=== PATIENT | male | born 1955 | race American Indian/Alaskan Native ===

== ENCOUNTER 2019-10-01 05:48 | Day surgery (SDC) | payer OTHER ==
[~2019-10-01 05:48] MED LIST: LACTATED RINGERS 1,000 ML IV SCH; ceFAZolin/Water 2 GM/20 ML 2 GM/20 ML SYRINGE IV NR
[2019-10-01] MEDS ORDERED: BACTERIOSTATIC SODIUM CHLORIDE 0.9% 30 ML VIAL INFILTRATI ONE (06:25)
[2019-10-01] MEDS ORDERED: LIDOCAINE MPF (2%) 20 MG/1 ML VIAL 5 ML ONE (07:29)
[2019-10-01] MEDS ORDERED: MIDAZOLAM 2 MG/2 ML INJ ONE (07:29)
[2019-10-01] MEDS ORDERED: propofoL 200 MG/20 ML VIAL IV ONE (07:30)
[2019-10-01] MEDS ORDERED: fentaNYL 100 MCG/2 ML INJ ONE (07:30)
--- NOTE | 2019-10-01 07:41 | Anesthesia Day of Surgery ---
Anesthesia Day of Surgery - Day of Surgery Patient Examined: Yes Patient H&P Reviewed: Yes Patient is NPO: Yes Cardiac Clearance: Yes
--- NOTE | 2019-10-01 07:41 | Anesthesia Consultation ---
Anesthesia Consult and Med Hx Date of service: 10/01/19 - Airway Anesthetic Teeth Evaluation: Poor Intubation Access Assessment: Possibly Difficult (patient not cooperative with airway exam. 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
[2019-10-01] MEDS ORDERED: ONDANSETRON 4 MG/2 ML INJ ONE (08:00)
[2019-10-01] MEDS ORDERED: WATER FOR IRRIG STERILE 2000 ML IR ONE (08:46)
--- NOTE | 2019-10-01 08:57 | Short Stay Summary ---
Short Stay Documentation Date of service: 10/01/19 - History H&P: obtained from office - Allergies and Medications Current Medications: Allergies ciprofloxacin [From Cipro] Allergy (Verified 09/06/19 16:38) Rash , VOMITING Sulfa (Sulfonamide Antibiotics) Allergy (Verified 09/06/19 16:37) Rash , VOMITING Home Medications Medication Instructions Recorded Confirmed Last Taken Type Aspirin [Adult Aspirin] 81 mg PO DAILY 09/06/19 10/01/19 7 Days Ago History ~09/24/19 AtorvaSTATin [Lipitor] 20 mg PO QHS 09/25/19 09/25/19 10/01/19 04:00 History Calcium Carbonate [Calcium 600MG 600 mg PO DAILY 09/25/19 09/25/19 09/30/19 History TAB] Lactobacillus Acidophilus/Fos 2 each PO DAILY 09/25/19 09/25/19 09/30/19 History [Acidophilus Probiotic Tablet] Scopolamine [Transderm-Scop] 1 each TD Q3D 09/25/19 09/25/19 10/01/19 04:00 History amLODIPine [Norvasc] 10 mg PO DAILY 09/25/19 09/25/19 10/01/19 04:00 History traMADoL [Ultram] 50 mg PO Q4HR PRN 09/25/19 09/25/19 09/30/19 History Active Medications Fentanyl (Sublimaze) 50 mcg IV Q5MIN PRN PRN Reason: Pain , Severe (7-10) Stop: 10/01/19 22:00 Cefazolin Sodium (Ancef/Sterile Water 2 Gm/20 Ml) 2 gm in 20 mls @ 80 mls/hr IV PREOP NR; Protocol Stop: 10/01/19 23:59 Lactated Ringer's (Lactated Ringers) 1,000 mls @ 75 mls/hr IV DIRECT CEDRIC Last Admin: 10/01/19 07:25 Dose: 75 mls/hr Documented by: - Brief post op/procedure progress note Date of procedure: 10/01/19 Pre-op diagnosis: urethral stricture Post-op diagnosis: same Procedure: cysto, urethral dilation, spt (18F), cystogram Anesthesia: GETA Surgeon: SEVERO KENT Estimated blood loss: minimal Pathology: none Condition: stable - Hospital course Hospital course: macrobid & norco on chart - Disposition Condition at discharge: Stable Disposition: DC-01 TO HOME OR SELFCARE Short Stay Discharge Plan Follow up with: [facility] [Primary Care Provider] - 7 Days
[2019-10-01] MEDS: fentaNYL 100 MCG/2 ML INJ IV PRN ×2 (09:55→10:10)
--- NOTE | 2019-10-01 09:55 | Fluoroscopy Report ---
FLUOROSCOPY CYSTOGRAM STATIC HISTORY: Suprapubic catheter placement FINDINGS: 0.2 minutes of fluoroscopy time was provided by radiology during suprapubic catheter placem ent by the urologist. One fluoroscopic image of the lower abdomen and pelvis is presented demonstrati ng a small amount of contrast agent within the bladder. There is no evidence for wall abnormality or extravasation. No vesicoureteral reflux. Please correlate with the procedural report by urology. Signer Name: Dennis Rizzo Jr, MD Signed: 10/01/2019 9:51 AM Workstation Name: [id number]
--- NOTE | 2019-10-01 10:23 | Operative Report ---
PREOPERATIVE DIAGNOSIS: Urethral stricture, neurogenic bladder. POSTOPERATIVE DIAGNOSES: Urethral stricture, neurogenic bladder. PROCEDURE: Cystoscopy, urethral dilatation, suprapubic catheter placement, cystogram. SURGEON: Momo Quan M.D. ANESTHESIA: General. ESTIMATED BLOOD LOSS: Minimal. FLUIDS: Crystalloid. COMPLICATIONS: No complications. INDICATIONS: This 64-year-old gentleman who was recently in the hospital at [place], underwent a gastric tube. He had a recent cerebrovascular accident, has minimal extremity function, subsequently had a gastric tube placed. He presents now. He also has difficulty urinating, apparently a stricture, presents now for suprapubic catheter placement, medical clearance from the [facility] was obtained. The patient was taken to the operating room. Risks, benefits, and complications were explained to his . DESCRIPTION OF PROCEDURE: The patient was taken to the operative suite, placed in a supine position. After adequate general anesthesia, placed in a dorsal lithotomy position, prepped and draped in a sterile fashion. was performed with 22-Mauritian Storz cystoscope. The patient was noted to have a midshaft stricture, could not advance the scope, 0.035 Glidewire was placed. Urethral dilatation with Gary sounds to 24-Mauritian was performed. Cystoscopy was performed. Severe trabeculation could be appreciated. A curved Lowsley retractor was used to identify the bladder and the abdominal wall, 1 cm cephalad the pubic symphysis could be palpated with the Lowsley retractor. A 1 cm incision was made with the Bovie, retractor was popped through and on to the abdominal wall. A 2-0 silk and an 18-Mauritian tuscarora tip catheter then advanced, was tied together, pulled out to the urethral stitch was cut. Cystoscope, I followed the catheter into the bladder tied it. Cystogram was performed. Adequate hemostasis achieved. A 2-0 Vicryl was tied to the abdominal wall. He was extubated and taken to recovery room in stable condition. He will go home on Picomize and magnetU. JOB# [id number] ARIANAC/NTS
[2019-10-01] MEDS ORDERED: HYDROcodone/ACETAMINOPHEN 5-325 MG TAB PO PRN (10:42)
[2019-10-01] MEDS ORDERED: HYDROcodone/ACETAMINOPHEN 7.5-325MG TAB ONE (10:45)
[2019-10-01 11:10] VITALS: BP 143/89
[2019-10-01] MEDS ORDERED: HYDROcodone/ACETAMINOPHEN 7.5-325MG TAB PO ONE (11:30)
--- NOTE | 2019-10-01 13:47 | Post Anesthesia Evaluation ---
- Post Anesthesia Evaluation Patient Participated: Yes Airway Patent: Yes Stable Respiratory Function: Yes Nausea/Vomiting: No Temp > 96.8F: Yes Pain Manageable: Yes Adequeate Hydration: Yes Anesthesia Complications: No
== END 2019-10-01 05:49 | disposition home or self-care (01) ==
LOC: OR 05:48
PROVIDERS: ATTEND Urology
DX: N35.819 Other urethral stricture, male, unspecified site (principal); N31.8 Other neuromuscular dysfunction of bladder; Z88.2 Allergy status to sulfonamides; Z88.8 Allergy status to other drugs, medicaments and biological substances; Z87.891 Personal history of nicotine dependence; Z79.899 Other long term (current) drug therapy; E78.00 Pure hypercholesterolemia, unspecified; I10 Essential (primary) hypertension; K21.9 Gastro-esophageal reflux disease without esophagitis; Z87.440 Personal history of urinary (tract) infections; Z98.890 Other specified postprocedural states
CPT/HCPCS: 51600; 52281; 74430; 82962; A4217; J0690; J2405; J2704; J3010; J7120; Q9967; J2250